=== PATIENT | female | born 1945 | race Caucasian/White ===

== ENCOUNTER 2019-01-11 10:17 | Day surgery (SDC) | payer MEDICARE, BC, OTHER ==
[2019-01-11] MEDS ORDERED: LIDOCAINE 2% MDV (20MG/ML) 20ML VIAL IV ONE (10:18)
[2019-01-11] MEDS ORDERED: PROPOFOL 10 MG/ML VIAL IV ONE (10:18)
--- NOTE | 2019-01-12 12:50 | Operative Note ---
OPERATION: COLONOSCOPY with cold forceps polypectomy x2. 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 POSTOPERATIVE DIAGNOSES: 1. Rectal polyps x2. 2. Normal-appearing ileocolonic anastomosis. PROCEDURE: After informed consent was obtained from the patient, she was placed in the left lateral decubitus position in the endoscopy suite, sedated and monitored by the department of anesthesia. Digital rectal exam was unremarkable other than some external hemorrhoids. A well-lubricated FCR901 colonoscope was inserted into the rectum and advanced to the cecum. The cecum was actually an ileocolonic anastomosis which appeared unremarkable. The remaining ascending colon, transverse colon, descending colon, and sigmoid colon were unremarkable. There were 3 diminutive rectal polyps identified and each removed with a cold forceps. Forward and J-turn views of the rectum and anorectum were otherwise unremarkable. The endoscope was straightened, the rectal ampulla deflated, and the endoscope was removed. RECOMMENDATIONS: I would suggest the patient undergo a repeat exam in 3 years. As always, thank you for allowing me to participate in the healthcare of your patients. ROSELYN
== END 2019-01-11 12:31 | disposition home or self-care (01) ==
LOC: HOP 10:17
PROVIDERS: ATTEND Internal Medicine Gastroenterology
DX: Z09 Encounter for follow-up examination after completed treatment for conditions other than malignant neoplasm (principal); Z86.010 Personal history of colon polyps; K62.1 Rectal polyp; Z85.038 Personal history of other malignant neoplasm of large intestine; I10 Essential (primary) hypertension; E03.9 Hypothyroidism, unspecified